=== PATIENT | male | born 1940 | race Caucasian/White ===

== ENCOUNTER → 2016-06-28 | Outpatient (CLI) | payer MEDICARE, BC ==
--- NOTE | 2016-06-28 09:53 | CARDIOVASCULAR REPORT ---
"Cerebrovascular Exam Indications: 780.4 Dizziness and giddiness. IMPRESSIONS 1. The bilateral vertebral arteries are patent with normal antegrade flow. 2. Study suggests less than 20% stenosis involving the right internal carotid artery and the left internal carotid artery. Carotid duplex study. Complete study and Doppler flow study including spectral analysis, color and weeks scale imaging. Height: Height: 170.2cm. Height: 67in. Weight: Weight: 78kg. Weight: 171.6lb. Body mass index: BMI: 26.9kg/m^2. Body surface area: BSA: 1.94m^2. Location: Vascular laboratory. Patient status: Outpatient. Tables: Arterial flow: + +--------+--------+ |Location |V sys |V ed | + +--------+--------+ |Right CCA - proximal|89.6cm/s|30.6cm/s| + +--------+--------+ |Right CCA - distal |88.8cm/s|30.6cm/s| + +--------+--------+ |Right ECA |101cm/s |--------| + +--------+--------+ |Right ICA - proximal|86.6cm/s|27cm/s | + +--------+--------+ |Right ICA - mid |63.4cm/s|29.8cm/s| + +--------+--------+ |Right ICA - distal |87.7cm/s|46.3cm/s| + +--------+--------+ |Right vertebral |33.7cm/s|--------| + +--------+--------+ |Left CCA - proximal |100cm/s |32.5cm/s| + +--------+--------+ |Left CCA - distal |86.6cm/s|28.1cm/s| + +--------+--------+ |Left ECA |83.8cm/s|--------| + +--------+--------+ |Left ICA - proximal |77.7cm/s|32.3cm/s| + +--------+--------+ |Left ICA - mid |76.4cm/s|32.3cm/s| + +--------+--------+ |Left ICA - distal |83.4cm/s|38.4cm/s| + +--------+--------+ |Left vertebral |24.5cm/s|--------| + +--------+--------+ Velocity ratios: + + + + + + | |Right, V sys|Right, V ed|Left, V sys|Left, V ed| + + + + + + |Max ICA/dist CCA|0.99 |1.51 |0.96 |1.37 | + + + + + + (Report amended ) Electronically signed by: Pradip Velarde [id number]"
== END ==
LOC: RT 08:42
DX: R42 Dizziness and giddiness (principal)